=== PATIENT | female | born 1995 | race American Indian/Alaskan Native ===

== ENCOUNTER 2019-11-07 17:09 | Emergency (ER) | payer BC ==
[2019-11-07 18:12] VITALS: BP 124/76
--- NOTE | 2019-11-07 18:13 | Emergency Department Report ---
Blank Doc - Documentation Documentation: 24-year-old female that presents with URI symptom with chest pains during [place]oug [place]anny. This initial assessment/diagnostic orders/clinical plan/treatment(s) is/are subject to change based on patient's health status, clinical progression and re- assessment by fellow clinical providers in the ED. Further treatment and workup at subsequent clinical providers discretion. Patient/guardians urged not to elope from the ED as their condition may be serious if not clinically assessed and managed. Initial orders include: 1- Patient sent to [facility] for further evaluation and treatment 2- CXR
--- NOTE | 2019-11-07 19:23 | XRay Report ---
CHEST 2 VIEWS INDICATION: cough. COMPARISON: None. FINDINGS: Support devices: None. Heart: Within normal limits. Lungs/Pleura: No acute air space or interstitial disease. No significant pleural effusion. IMPRESSION: No acute findings. Signer Name: Darwin Wells MD Signed: 11/07/2019 7:19 PM Workstation Name: [id number]
--- NOTE | 2019-11-07 20:10 | Emergency Department Report ---
ED General Adult HPI - General Chief complaint: Upper Respiratory Infection Stated complaint: CHEST PAIN,HEADACHE Time Seen by Provider: 11/07/19 18:12 Source: patient Mode of arrival: Ambulatory Limitations: No Limitations - History of Present Illness Initial comments: Patient is a 24-year-old female presents emergency room with complaints of URI symptoms that began 3 days ago. She has associated sinus pressure, mild nasal congestion, mild headache, chest discomfort after frequent coughing. She states also for the last 3 days she has had dysuria. Patient denies any productive cough, rhinorrhea, nausea, vomiting, fever, abdominal pain, shortness of breath, leg swelling. She states her last mental cycle was 10/18/2019. she denies any past medical history or allergies medications. - Related Data Previous Rx's Medication Instructions Recorded Last Taken Type Fluticasone [Flonase] 1 spray NS QDAY #1 bottle 11/07/19 Unknown Rx cephALEXin [Keflex] 500 mg PO Q12HR 7 Days #14 cap 11/07/19 Unknown Rx guaiFENesin ER [Mucinex ER] 600 mg PO Q12H #14 tablet.er 11/07/19 Unknown Rx Allergies Allergy/AdvReac Type Severity Reaction Status Date / Time No Known Allergies Allergy Unverified 11/07/19 17:13 ED Review of Systems ROS: Stated complaint: CHEST PAIN,HEADACHE Other details as noted in HPI Comment: All other systems reviewed and negative ED Past Medical Hx - Past Medical History Previous Medical History?: No - Surgical History Past Surgical History?: No - Social History Smoking Status: Never Smoker Substance Use Type: Alcohol - Medications Home Medications: Home Medications Medication Instructions Recorded Confirmed Last Taken Type Fluticasone [Flonase] 1 spray NS QDAY #1 bottle 11/07/19 Unknown Rx cephALEXin [Keflex] 500 mg PO Q12HR 7 Days #14 cap 11/07/19 Unknown Rx guaiFENesin ER [Mucinex ER] 600 mg PO Q12H #14 tablet.er 11/07/19 Unknown Rx ED Physical Exam - General Limitations: No Limitations General appearance: alert, in no apparent distress - Head Head exam: Present: atraumatic, normocephalic - Eye Eye exam: Present: normal appearance - ENT ENT exam: Present: normal orophraynx, mucous membranes moist, TM's normal bilaterally, normal external ear exam, other (pale boggy turbinates) - Respiratory Respiratory exam: Present: normal lung sounds bilaterally. Absent: respiratory distress, wheezes, rales, rhonchi, stridor, chest wall tenderness, accessory muscle use, decreased breath sounds, prolonged expiratory - Cardiovascular Cardiovascular Exam: Present: regular rate, normal rhythm, normal heart sounds. Absent: systolic murmur, diastolic murmur, rubs, gallop - Neurological Exam Neurological exam: Present: alert, oriented X3 - Psychiatric Psychiatric exam: Present: normal affect, normal mood - Skin Skin exam: Present: warm, dry, intact ED Course Vital Signs 11/07/19 18:10 Temperature 99.1 F Pulse Rate 88 Respiratory 18 Rate Blood Pressure 124/76 O2 Sat by Pulse 100 Oximetry ED Medical Decision Making - Radiology Data Radiology results: report reviewed CHEST 2 VIEWS INDICATION: cough. COMPARISON: None. FINDINGS: Support devices: None. Heart: Within normal limits. Lungs/Pleura: No acute air space or interstitial disease. No significant pleural effusion. IMPRESSION: No acute findings. Signer Name: Darwin Wells MD Signed: 11/07/2019 7:19 PM Workstation Name: [id number] Transcribed By: ES Dictated By: Darwin Wells MD Electronically Authenticated By: Darwin Wells MD Signed Date/Time: 11/07/191918 - Medical Decision Making Patient is a 24-year-old female presents emergency room with complaints of URI symptoms that began 3 days ago. She has associated sinus pressure, mild nasal congestion, mild headache, chest discomfort after frequent coughing. She states also for the last 3 days she has had dysuria. Patient denies any productive cough, rhinorrhea, nausea, vomiting, fever, abdominal pain, shortness of breath, leg swelling. She states her last mental cycle was 10/18/2019. she denies any past medical history or allergies medications. Vitals are normal. Physical examination is normal per note. Chest x-ray with no acute findings. Urine is negative. UA shows 1+ bacteria and trace leukocyte esterase. Possible early UTI will treat patient with antibiotics. Clinical signs or symptoms of PNA or bacterial sinusitis. Symptoms and examination consistent with viral URI. Patient is not having any abdominal pain or fever or nausea or vomiting will have patient go to the health department for a full STD panel. advised pt to please take medication as prescribed. Increase your water intake over the next several days. Follow-up with a primary care doctor. Follow-up with the health department for a full STD panel. Return to the emergency room for any new or worsening symptoms. - Differential Diagnosis URI, PNA, sinusitis, viral syndrome, pharyngitis Critical care attestation.: If time is entered above; I have spent that time in minutes in the direct care of this critically ill patient, excluding procedure time. ED Disposition Clinical Impression: Upper respiratory infection Qualifiers: URI type: unspecified URI Qualified Code(s): J06.9 - Acute upper respiratory infection, unspecified UTI (urinary tract infection) Qualifiers: Urinary tract infection type: acute cystitis Hematuria presence: without hematuria Qualified Code(s): N30.00 - Acute cystitis without hematuria Disposition: TO HOME OR SELFCARE Is pt being admited?: No Does the pt Need Aspirin: No Condition: Stable Instructions: Urinary Tract Infection in Women (ED), Upper Respiratory Infection (ED) Additional Instructions: please take medication as prescribed. Increase your water intake over the next several days. Follow-up with a primary care doctor. Follow-up with the health department for a full STD panel. Return to the emergency room for any new or worsening symptoms. Prescriptions: Fluticasone [Flonase] 1 spray NS QDAY #1 bottle cephALEXin [Keflex] 500 mg PO Q12HR 7 Days #14 cap guaiFENesin ER [Mucinex ER] 600 mg PO Q12H #14 tablet.er Referrals: DANIELA VAZQUEZ MD [Staff Physician] - 2-3 Days [facility] [Outside] - 2-3 Days Time of Disposition: 21:25 Print Language: [place]
[2019-11-07 20:55] LABS: Bacteria,Urine 1+ /HPF (Negative); Bilirubin,Urine NEG (Negative); Blood,Urine NEG (Negative); Color,Urine Yellow (Yellow); Mucus,Urine FEW /HPF; Protein,Urine <15 mg/dL mg/dL (Negative)
[2019-11-07 21:09] LABS: HCG Qualitative,Urine Negative (Negative)
== END 2019-11-07 21:35 | disposition home or self-care (01) ==
LOC: ED 17:09
DX: J06.9 Acute upper respiratory infection, unspecified (principal); N39.0 Urinary tract infection, site not specified; Z79.899 Other long term (current) drug therapy
CPT/HCPCS: 71046; 81001; 81025